=== PATIENT | male | born 1965 | race Caucasian/White ===

== ENCOUNTER 2020-02-05 09:44 | Emergency (ER) | payer BC ==
[2020-02-05 09:58] VITALS: BP 161/116
[2020-02-05 11:47] LABS: ABSOLUTE LYMPHOCYTES (AUTO) 1.2 10^3/uL (0.5-4.7); ABSOLUTE MONOCYTES (AUTO) 0.4 10^3/uL (0.1-1.4); ABSOLUTE NEUT (AUTO) 9.3 10^3/uL (1.7-8.2); BASOPHILS % (AUTO) 0.4 % (0-2); EOSINOPHILS % (AUTO) 0.3 % (0-6); HEMATOCRIT 46.3 % (37.9-51.0); HEMOGLOBIN 15.7 g/dL (13.5-17.0); LYMPHOCYTES % (AUTO) 10.6 % (13-45); MEAN CORPUSCULAR HEMOGLOBIN 30.9 pg (27.0-33.4); MEAN CORPUSCULAR VOLUME 91 fl (80-97); MONOCYTES % (AUTO) 3.7 % (3-13); PLATELET COUNT 243 10^3/uL (150-450); RED BLOOD COUNT 5.09 10^6/uL (4.35-5.55); TOTAL CELLS COUNTED % (AUTO) 100 %; WHITE BLOOD COUNT 10.9 10^3/uL (4.0-10.5)
[2020-02-05 11:52] LABS: APPEARANCE,URINE CLEAR; BILIRUBIN,URINE NEGATIVE (NEGATIVE); COLOR,URINE YELLOW; GLUCOSE, URINE NEGATIVE (NEGATIVE); KETONES,URINE 20 mg/dL (NEGATIVE); LEUKOCYTE ESTERASE,URINE NEGATIVE (NEGATIVE); NITRITE,URINE NEGATIVE (NEGATIVE); PROTEIN,URINE 30 mg/dL (NEGATIVE); URINE SPECIFIC GRAVITY 1.019; UROBILINOGEN,URINE NEGATIVE mg/dL (<2.0)
[2020-02-05 12:04] LABS: ALBUMIN 4.6 g/dL (3.5-5.0); ALKALINE PHOSPHATASE 69 U/L (38-126); ANION GAP 11 (5-19); ASPARTATE AMINO TRANSFERASE 19 U/L (17-59); BILIRUBIN,TOTAL 0.7 mg/dL (0.2-1.3); BLOOD UREA NITROGEN 15 mg/dL (7-20); CALCIUM 9.4 mg/dL (8.4-10.2); CARBON DIOXIDE 21 mmol/L (22-30); CHLORIDE 106 mmol/L (98-107); GLUCOSE 132 mg/dL (75-110); POTASSIUM 4.1 mmol/L (3.6-5.0); TOTAL PROTEIN 7.3 g/dL (6.3-8.2)
[2020-02-05] MEDS ORDERED: RINGERS SOLUTION,LACTATED 1,000 ML IV ONE (13:40)
[2020-02-05] MEDS ORDERED: KETOROLAC TROMETHAMINE INJ/PF 30 MG/1 ML SDV IV ONE (13:41)
[2020-02-05] MEDS ORDERED: ONDANSETRON HCL INJ/PF 4 MG/2 ML SDV IV ONE (13:41)
--- NOTE | 2020-02-05 13:41 | ER Document Report ---
ED GI/ - General Chief Complaint: Flank Pain Stated Complaint: FLANK PAIN Time Seen by Provider: 02/05/20 13:15 Mode of Arrival: Ambulatory Information source: Patient Notes: 54-year-old male past medical history significant for kidney stones presents to the emergency room complaining of sudden onset of left flank pain that started earlier today. Complains of nausea with vomiting. No fevers. Decreased urinary output. Describes the pain as sharp and throbbing. Has been intermittent. No medications for symptoms. TRAVEL OUTSIDE OF THE [place] IN LAST 30 DAYS: No - Related Data Allergies/Adverse Reactions: Sulfa (Sulfonamide Antibiotics) Allergy (Verified 02/05/20 09:56) Home Medications: flomax. lexaproo. prilosec Past Medical History - General Information source: Patient - Social History Smoking Status: Never Smoker Chew tobacco use (# tins/day): No Frequency of alcohol use: None Drug Abuse: None Family History: Reviewed & Not Pertinent Renal/ Medical History: Reports: Hx Kidney Stones Review of Systems - Review of Systems Constitutional: No symptoms reported EENT: No symptoms reported Cardiovascular: No symptoms reported Gastrointestinal: Nausea, Vomiting. denies: Abdominal pain Genitourinary: Flank pain - Left-sided, Other - Decreased urination Neurological/Psychological: No symptoms reported -: Yes All other systems reviewed and negative Physical Exam - Vital signs Vitals: Pulse Resp BP Pulse Ox 99 24 H 161/116 H 100 02/05/20 09:51 02/05/20 09:51 02/05/20 09:51 02/05/20 09:51 - General General appearance: Appears well, Alert In distress: Mild - Respiratory Respiratory status: No respiratory distress Chest status: Nontender Breath sounds: Normal Chest palpation: Normal - Cardiovascular Rhythm: Regular Heart sounds: Normal auscultation Murmur: No - Abdominal Inspection: Normal Distension: No distension Bowel sounds: Normal Tenderness: Nontender Organomegaly: No organomegaly - Back Back: Normal, Nontender, CVA tenderness - Left-sided - Neurological Neuro grossly intact: Yes Cognition: Normal Orientation: AAOx4 [employer] Coma Scale Eye Opening: Spontaneous [employer] Coma Scale Verbal: Oriented Mildred Coma Scale Motor: Obeys Commands Mildred Coma Scale Total: 15 Speech: Normal Motor strength normal: LUE, RUE, LLE, RLE Sensory: Normal - Skin Skin Temperature: Warm Skin Moisture: Dry Skin Color: Normal Course - Re-evaluation Re-evalutation: 02/05/20 15:54 Patient upset about the long delay in CT testing. Patient is aware that I have called the CT department and they are aware of the testing unfortunately they have several patients that have CTs ordered. Patient does not want to wait any longer to stay he has requested to leave AGAINST MEDICAL ADVICE. The patient has chosen to leave the facility against medical advice. The relevant issues have been reviewed and discussed with the patient and family at the bedside. At the time of this assessment there is no indication for involuntary commitment. The patient is alert, oriented, and able to express clearly their reasoning for not wanting to remain in the emergency department for further treatment. The patient is not clinically psychotic, intoxicated, and denies and suicidal ideation. Differential or suspected diagnoses based on medical screening exam: Flank pain, unknown etiology, elevated blood pressure The patient is aware of the concerning diagnoses and acknowledges understanding of the reasons for the following recommendations: Loss of life, permanent disability, chronic pain, worsening of condition, cardiac dysfunction, respiratory dysfunction loss of current lifestyle The following recommendations/services were offered and refused: Further evaluation and testing The following risks were explained: , permanent disability, chronic pain, worsening condition, loss of current lifestyle, respiratory dysfunction, cardiac dysfunction, urinary dysfunction Clinical impression: Patient is competent to make decisions regarding the medical that is being offered. Patient was counseled on the importance of following up with his primary care physician for his elevated blood pressure. He was also counseled he can return to the emergency room at any time for further evaluation and treatment. 02/05/20 16:00 - Vital Signs Vital signs: Temp Pulse Resp BP Pulse Ox 99 24 H 161/116 H 100 02/05/20 09:51 02/05/20 09:51 02/05/20 09:51 02/05/20 09:51 - Laboratory Result Diagrams: 02/05/20 11:00 02/05/20 11:00 Laboratory results interpreted by me: 02/05/20 02/05/20 02/05/20 11:00 11:00 11:00 WBC 10.9 H Lymph % (Auto) 10.6 L Absolute Neuts (auto) 9.3 H Seg Neutrophils % 85.0 H Carbon Dioxide 21 L Glucose 132 H Urine Protein 30 H Urine Ketones 20 H Urine Blood LARGE H Discharge - Discharge Clinical Impression: Left against medical advice, Left flank pain, Elevated blood pressure reading in office without diagnosis of hypertension Condition: Stable Disposition: AGAINST MEDICAL ADVICE Instructions: Flank Pain ([facility]), High Blood Pressure ([facility]) Additional Instructions: You have requested to leave AGAINST MEDICAL ADVICE. You have been counseled on the risks and benefits of leaving AGAINST MEDICAL ADVICE including but not limited to loss of life, worsening condition, chronic pain, urinary dysfunction, gas dysfunction, gastrointestinal dysfunction, respiratory dysfunction, loss of current lifestyle. You were counseled about your elevated blood pressure. It is imperative that you follow-up with your primary care physician for your elevated blood pressure. You can return to the emergency room at any time for further evaluation and treatment. Forms: Elevated Blood Pressure
== END 2020-02-05 16:30 | disposition left against medical advice (07) ==
LOC: EDBD → ER 09:44
DX: R10.9 Unspecified abdominal pain (principal); R11.2 Nausea with vomiting, unspecified; R03.0 Elevated blood-pressure reading, without diagnosis of hypertension; Z87.442 Personal history of urinary calculi; Z79.899 Other long term (current) drug therapy; Z88.2 Allergy status to sulfonamides; Z53.29 Procedure and treatment not carried out because of patient's decision for other reasons
CPT/HCPCS: 99284; 96361; 96374; 96375; 36415; 83690; 85025; 80053; 81001; J1885; J2405; J7120